=== PATIENT | male | born 1965 | race Caucasian/White ===

== ENCOUNTER → 2024-02-22 16:27 | Outpatient (REF) | payer OTHER, SELFPAY | LOC: HWRAD 16:27 | PROVIDERS: ATTENDING PHYSICIAN Nurse Practitioner Family | DX: M79.645 Pain in left finger(s) (principal) | CPT/HCPCS: 73110; 73130 ==

== ENCOUNTER → 2024-03-16 08:00 | Outpatient (REF) | payer OTHER, SELFPAY | LOC: HWRAD 08:00 | PROVIDERS: ATTENDING PHYSICIAN Nurse Practitioner Family | DX: R10.9 Unspecified abdominal pain (principal) | CPT/HCPCS: 76700 ==

== ENCOUNTER 2024-08-15 22:16 | Emergency (ER) | payer OTHER, SELFPAY ==
[2024-08-15 22:19] VITALS: BP 177/124
--- NOTE | 2024-08-15 23:03 | ED.GENMED ---
History of Present Illness
General
Chief Complaint: Blood Pressure Problem
Source: patient
Exam Limitations: none
Time Seen by Provider: 08/15/24 22:52
Nursing documentation reviewed up to this point in time: agreed with
History of Present Illness
History of Present Illness:
Patient is a 59-year-old male with history of hypertension, hypercholesteremia, AICD defibrillator presents to the ER for evaluation. Patient has been taking his blood pressure recently for the past week because he has seen his primary care
physician and asset analyst this week. It has been normal however today prior to arrival it was 187/127. He reports this was around 9 PM. He did have 1 and half glasses of wine prior to this. He had no associated headache or shortness of breath
with that. He does report he noticed some soreness in his left upper chest neck area. He reports this just simply feels sore. He is anxious about his blood pressure which is what prompted him to come to the ER. He did take his Irbersartan today.
Review of Systems
Review of Systems
Allergies reviewed?: Yes
All Other Systems: ROS reviewed and negative except as documented in HPI and ROS
Constitutional: Reports no symptoms
Respiratory: Reports no symptoms; Denies trouble breathing
Cardiac: Reports chest pain (left upper chest pain 'soreness' )
ABD/GI: Reports no symptoms
: Reports no symptoms
Musculoskeletal: Reports no symptoms
Skin: Reports no symptoms
Neurological: Reports no symptoms
Psychiatric: Reports no symptoms
Phy Exam
General Physical Exam
General Presentation: no apparent distress
General age: appears stated age
General Skin: warm and dry
General Habitus: normal
General Mental: alert
General Hydration: appears well hydrated
Cardiovascular Exam
Cardiovascular Exam: regular rate/rhythm, no murmur and normal peripheral pulses
Pulmonary Exam
Pulmonary Exam: lungs clear and no respiratory distress
Neurological Exam
Neurological Exam: alert and oriented x3
Musculoskeletal Exam
Musculoskeletal Exam: full ROM
Skin Exam
Skin Exam: normal color and warm/dry
Psychiatric Exam
Psychiatric Exam: normal mood/affect
Course
Orders/Labs/Results
Orders:
Orders
08/15/24 22:18
EKG [Electrocardiogram (*1)] Urgent
Reason for Study: Hypertension, Benign
08/15/24 22:19
EKG- Treatment ONCE
08/15/24 23:04
Cardiac Monitoring- Treatment ONCE
IV Insert/Care/Rem.- Treatment PRN
08/15/24 23:06
Electrocardiogram (*1) Stat
Reason for Study: Abdominal Pain
EKG- Treatment ONCE
08/15/24 23:25
Chest [CR Chest - 2 Views ] Urgent
Comment:
Reason For Exam: cp
08/15/24 23:27
Complete Blood Count/With Diff Urgent
Comprehensive Metabolic Panel Urgent
Troponin I Urgent
Abnormal Lab Results
08/15/24
23:27
RBC 4.38 L 10^6/uL
(4.70-6.10)
MCH 31.1 H pg
(27.0-31.0)
Absolute Monos (auto) 0.7 H 10^3/uL
(0.1-0.6)
Lymphocytes % 20.2 L %
(20.5-51.1)
Glucose 115 H mg/dl
(70-99)
ALT 71 H U/L
(0-50)
08/15/24 23:27
08/15/24 23:27
Vital Signs
Initial and Last Documented VS:
Initial Vital Signs
Temp Pulse Resp BP Pulse Ox
98.1 F 117 19 177/124 94
08/15/24 22:19 08/15/24 22:19 08/15/24 22:19 08/15/24 22:19 08/15/24 22:19
Last Documented Vital Signs
Temp Pulse Resp BP Pulse Ox
98.1 F 82 13 145/87 94
08/15/24 22:19 08/15/24 23:58 08/15/24 23:58 08/15/24 23:57 08/15/24 23:30
Masking Machine Feeder consulted with Physician
Masking Machine Feeder consulted with physician?: Yes
Name of Physician Consulted: Jomar
MDM/Problems Addressed
MDM/Problems Addressed:
59 yr old male presented to the ER for elevated blood pressure. Patient was taking his blood pressure at home and it was very elevated which is what brought him to the ER. He is on an ARB for elevated blood pressure and has appointment his
asset analyst tomorrow and family doctor this week. He had no complaints of shortness of breath. He did have some mild discomfort over the clavicle/region and he was very anxious over his blood pressure.
He presented awake alert no acute distress. Pt was very anxious about his blood pressure prior to arrival and his heart rate was 118 however during my evaluation he was much more calmer and heart rate has been in the 80s. Patient's blood work is
normal including normal renal function, nml troponin. no chest/discomfort on re-evaluation.
he is stable appearing.
d/c close f/u by his pcp /cardiology as scheduled.
Chronic conditions affecting care:
htn high cholesterol , hx of aicd
*Radiology
Radiology exam reviewed: preliminary read by ED provider ([facility] )
*Pulse Oximetry
Patient hypoxic: no
*EKG
Interpreted by ED Provider?: Yes
Heart Rate: 118
Rate: tachycardiac
Rhythm: sinus
Ischemia: no ischemia
*Critical Care Note
Total Time (30-74mins, 75-104mins- exclusive of procedures): Not Applicable
ED Attending Note
-
Portions of this chart may have been created with voice recognition software.� Occasional wrong word or��sound alike� substitutions may have occurred due to the inherent limitations of voice recognition software.
Discharge Plan
Departure
Patient Disposition: Home (Routine Discharge)
Date of Disposition: 08/16/24
Time of Disposition: 00:47
Patient with high blood pressure during this ER visit?: Yes
Covid-19: Not Applicable
Discharge Problem:
Elevated blood pressure reading
Instructions: High Blood Pressure (DC), BLOOD PRESSURE
Prescriptions:
No Action
omeprazole 40 mg Capsule,Delayed Release(Dr/Ec)
40 mg PO DAILY
sildenafil 100 mg Tablet
100 mg PO DAILY PRN (Reason: ED)
Plenvu 140-9-5.2 gram Powder In Packet, Sequential
1 ea PO .PERPROTOCOL
Referrals:
Cuco Abrams CRNP [Family Provider] -
Activity Restrictions/Additional Instructions:
Follow up with your asset analyst as scheduled tomorrow for reevaluation of symptoms and blood pressure. In addition please also follow-up with your family doctor as scheduled. Continue all of your medications and return for any worsening of
symptoms
Interventions
Interventions:
*Risk Screen - Suicide Last Done: 08/15/24 22:19
*General Assessment Last Done: 08/15/24 22:19
*Neglect/Abuse Screening Last Done: 08/15/24 22:19
*ED- Fall Risk Assessment Last Done: 08/15/24 23:31
*ED COVID-19 Vaccine History Last Done: 08/15/24 22:19
ED- Cardiac Assessment Last Done: 08/15/24 23:17
ED- Neurological Assessment Last Done: 08/15/24 23:17
ED- Pulmonary Assessment Last Done: 08/15/24 23:18
Discharge Date and Time
Print Language: BAHRAINI
[2024-08-15 23:12] VITALS: BP 159/113
[2024-08-15 23:34] LABS: % Basophils 0.6 % (0-2); % Immature Granulocytes 0.4 % (0-0.5); % Lymphocytes 20.2 % (20.5-51.1); % Monocytes 9.1 % (1.7-9.3); % Neutrophils 67.7 % (42.2-75.2); Absolute Basophils 0.1 10^3/uL (0-0.2); Absolute Eosinophils 0.2 10^3/uL (0-0.7); Absolute Lymphocytes 1.6 10^3/uL (1.2-3.4); Absolute Monocytes 0.7 10^3/uL (0.1-0.6); Absolute Neutrophils 5.5 10^3/uL (1.4-6.5); Hematocrit 39.4 % (39.0-52.0); Hemoglobin 13.6 g/dL (13.0-18.0); Mean Corp Hgb Conc. 34.5 g/dL (33.0-37.0); Mean Corpuscular Hgb 31.1 pg (27.0-31.0); Mean Platelet Volume 8.7 fL (7.4-10.4); Nucleated Red Blood Cells % 0 % (-); Platelet Count 183 10^3/uL (130-400); Red Blood Cell Count 4.38 10^6/uL (4.70-6.10); Red Cell Dist. Width 12.9 % (11.5-14.5); White Blood Cell Count 8.1 10^3/uL (4.8-10.8)
[2024-08-15 23:52] LABS: ALT (SGPT) 71 U/L (0-50); AST (SGOT) 59 U/L (17-59); Albumin 4.1 g/dl (3.5-5.0); Alkaline Phosphatase 113 U/L (38-126); Blood Urea Nitrogen 18 mg/dl (9-20); Calcium 9.3 mg/dl (8.4-10.2); Carbon Dioxide 25 mmol/L (22-30); Chloride 104 mmol/L (98-107); Glucose 115 mg/dl (70-99); Potassium 4.2 mmol/L (3.5-5.1); Sodium 136 mmol/L (135-145); Total Bilirubin 0.6 mg/dl (0.2-1.3); Total Protein 7.2 g/dl (6.3-8.2); eGFR > 60.00
[2024-08-15 23:57] VITALS: BP 145/87
[2024-08-15 23:57] LABS: Troponin I < 0.012 ng/ml
[2024-08-16] VITALS: BP 138/100
[2024-08-16 00:42] VITALS: BP 139/99
[2024-08-16 01:00] VITALS: BP 130/90
== END 2024-08-16 01:06 | disposition home or self-care (01) ==
LOC: EMR 22:16
PROVIDERS: Nurse Practitioner; EMERGENCY PHYSICIAN Student in an Organized Health Care Education/Training Program; FAMILY PHYSICIAN Nurse Practitioner Family
DX: R07.89 Other chest pain (principal); I10 Essential (primary) hypertension; E78.00 Pure hypercholesterolemia, unspecified; Z95.810 Presence of automatic (implantable) cardiac defibrillator; I25.2 Old myocardial infarction
CPT/HCPCS: 99283; 71046; 80053; 84484; 85025; 93005

== ENCOUNTER → 2024-08-24 14:09 | Outpatient (REF) | payer OTHER, SELFPAY | LOC: HWRAD 14:09 | PROVIDERS: ATTENDING PHYSICIAN Nurse Practitioner Family | DX: R94.5 Abnormal results of liver function studies (principal) | CPT/HCPCS: 76700 ==